=== PATIENT | male | born 1955 | race Caucasian/White ===

== ENCOUNTER 2018-10-18 09:32 | Emergency (ER) | payer SELFPAY ==
--- NOTE | 2018-10-18 10:07 | ER ---
Nurse's Notes [facility] Name: Andrae Norman Age: 63 yrs Sex: Male : 1955 Arrival Date: 10/18/2018 Time: 09:35 Bed 13 Private MD: Unknown, Unknown Diagnosis: Bitten by cat;Cellulitis of right upper limb Presentation: 10/18 09:52 Presenting complaint: Patient states: last Tuesday, my son's girlfriend's house cat, bit hj and scratch me on my R hand, unknown if cat's vaccination is up to date, yesterday i noticed my R hand is swollen and i dont feel right; reports F/C; denies N/V;. Transition of care: patient was not received from another setting of care. Onset of symptoms was October 18, 2018. Risk Assessment: Do you want to hurt yourself or someone else? Patient reports no desire to harm self or others. Initial Sepsis Screen: Does the patient meet any 2 criteria? No. Patient's initial sepsis screen is negative. Does the patient have a suspected source of infection? No. Patient's initial sepsis screen is negative. Care prior to arrival: None. 09:52 Method Of Arrival: Ambulatory 09:52 Acuity: COLLIN 3 hj Triage Assessment: 09:56 Bite description: bite sustained to right hand is from animal, was sustained 3 dasys by hj a cat, animal information: Appearance: was unknown if well or sick, is from animal, vaccination(s) is unknown, was sustained Animal status: Animal control has not been notified, happened in [place], [place] under [facility]. General: Appears in no apparent distress. uncomfortable, Behavior is calm, cooperative, appropriate for age. Pain: Complains of pain in right hand. Historical: - Allergies: 09:55 No Known Allergies; hj - Home Meds: 09:55 None [Active]; hj - PMHx: 09:55 None; - PSHx: 09:55 None; hj - Immunization history:: Adult Immunizations up to date. - Social history:: Smoking status: Patient uses tobacco products, Patient/guardian denies using alcohol. - Ebola Screening: : Patient negative for fever greater than or equal to 101.5 degrees Fahrenheit, and additional compatible Ebola Virus Disease symptoms Patient denies exposure to infectious person Patient denies travel to an Ebola-affected area in the 21 days before illness onset. Screenin:56 Abuse screen: Denies threats or abuse. Denies injuries from another. Nutritional hj screening: No deficits noted. Tuberculosis screening: No symptoms or risk factors identified. Fall Risk None identified. Assessment: 09:57 Derm: Skin Skin is. hj Vital Signs: 09:58 BP 123 / 59; Pulse 70; Resp 18; Temp 97.1(O); Pulse Ox 99% on R/A; Weight 83.91 kg; hj Height 5 ft. 10 in. (177.80 cm); Pain 8/10; 09:58 Body Mass Index 26.54 (83.91 kg, 177.80 cm) hj ED Course: 09:35 Patient arrived in ED. ag5 09:35 Unknown, Unknown is Private Physician. ag5 09:51 Iker Yen, RN is Primary Nurse. hj 09:54 Triage completed. hj 09:56 [facility] jr8 09:56 Nico Zimmer MD is Attending Physician. jr8 09:57 Arm band placed on left wrist. hj 09:58 Patient has correct armband on for positive identification. Placed in gown. Bed in low hj position. Call light in reach. Side rails up X 1. 10:04 Adair Cotto MD is Referral Physician. jr8 10:15 No provider procedures requiring assistance completed. Patient did not have IV access hj during this emergency room visit. Administered Medications: No medications were administered Outcome: 10:05 Discharge ordered by . jr8 10:15 Discharged to home ambulatory. hj 10:15 Condition: stable 10:15 Discharge instructions given to patient, Instructed on discharge instructions, follow up and referral plans. medication usage, Demonstrated understanding of instructions, follow-up care, medications, Prescriptions given X 1. 10:16 Patient left the ED. Signatures: Jose Andino PA PA Iker Petersen, RN RN Karolina Motley ag5
--- NOTE | 2018-10-18 10:08 | EDPHYS ---
Physician Documentation [facility] Name: Andrae Norman Age: 63 yrs Sex: Male : 1955 Arrival Date: 10/18/2018 Time: 09:35 Bed 13 Private MD: Unknown, Unknown ED Physician Nico Zimmer HPI: 10/18 10:01 This 63 yrs old Male presents to ER via Ambulatory with complaints of Cat jr8 Bite. 10:01 The patient was bitten on the right hand, by a cat, as a result of being attacked by jr8 the animal. Onset: The symptoms/episode began/occurred acutely, 3 day(s) ago. Animal information: The animal was reported to appear healthy. is unknown, The animal is known and can be quarantined. Secondary to the bite the patient reports erythema, pain, swelling, warmth. Associated signs and symptoms: The patient has no apparent associated signs or symptoms. Severity of symptoms: At their worst the symptoms were moderate, in the emergency department the symptoms are unchanged. The patient has not experienced similar symptoms in the past. The patient has not recently seen a physician. was bitten by girlfriends sons cat. Historical: - Allergies: 09:55 No Known Allergies; hj - Home Meds: 09:55 None [Active]; hj - PMHx: 09:55 None; hj - PSHx: 09:55 None; hj - Immunization history:: Adult Immunizations up to date. - Social history:: Smoking status: Patient uses tobacco products, Patient/guardian denies using alcohol. - Ebola Screening: : Patient negative for fever greater than or equal to 101.5 degrees Fahrenheit, and additional compatible Ebola Virus Disease symptoms Patient denies exposure to infectious person Patient denies travel to an Ebola-affected area in the 21 days before illness onset. ROS: 10:01 Eyes: Negative for injury, pain, redness, and discharge, ENT: Negative for injury, jr8 pain, and discharge, Neck: Negative for injury, pain, and swelling, Cardiovascular: Negative for chest pain, palpitations, and edema, Respiratory: Negative for shortness of breath, cough, wheezing, and pleuritic chest pain, Abdomen/GI: Negative for abdominal pain, nausea, vomiting, diarrhea, and constipation, Back: Negative for injury and pain, Skin: Negative for injury, rash, and discoloration, Neuro: Negative for headache, weakness, numbness, tingling, and seizure. 10:01 MS/extremity: Positive for erythema, pain, puncture, swelling, tenderness, warmth, of the dorsum right hand. Exam: 10:01 Eyes: Pupils equal round and reactive to light, extra-ocular motions intact. Lids and jr8 lashes normal. Conjunctiva and sclera are non-icteric and not injected. Cornea within normal limits. Periorbital areas with no swelling, redness, or edema. ENT: Nares patent. No nasal discharge, no septal abnormalities noted. Tympanic membranes are normal and external auditory canals are clear. Oropharynx with no redness, swelling, or masses, exudates, or evidence of obstruction, uvula midline. Mucous membranes moist. Neck: Trachea midline, no thyromegaly or masses palpated, and no cervical lymphadenopathy. Supple, full range of motion without nuchal rigidity, or vertebral point tenderness. No Meningismus. Cardiovascular: Regular rate and rhythm with a normal S1 and S2. No gallops, murmurs, or rubs. Normal PMI, no JVD. No pulse deficits. Respiratory: Lungs have equal breath sounds bilaterally, clear to auscultation and percussion. No rales, rhonchi or wheezes noted. No increased work of breathing, no retractions or nasal flaring. Abdomen/GI: Soft, non-tender, with normal bowel sounds. No distension or tympany. No guarding or rebound. No evidence of tenderness throughout. Back: No spinal tenderness. No costovertebral tenderness. Full range of motion. Skin: Warm, dry with normal turgor. Normal color with no rashes, no lesions, and no evidence of cellulitis. Neuro: Awake and alert, GCS 15, oriented to person, place, time, and situation. Cranial nerves II-XII grossly intact. Motor strength 5/5 in all extremities. Sensory grossly intact. Cerebellar exam normal. Normal gait. 10:01 Musculoskeletal/extremity: Extremities: grossly normal except: noted in the dorsum right hand: erythema, pain, swelling, tenderness, puncture site noted to right dorsal hand near CMC region, ROM: intact in all extremities, full active range of motion, full passive range of motion, Circulation is intact in all extremities. Sensation intact. Vital Signs: 09:58 BP 123 / 59; Pulse 70; Resp 18; Temp 97.1(O); Pulse Ox 99% on R/A; Weight 83.91 kg; hj Height 5 ft. 10 in. (177.80 cm); Pain 8/10; 09:58 Body Mass Index 26.54 (83.91 kg, 177.80 cm) MDM: 09:56 Patient medically screened. jr8 10:04 Data reviewed: vital signs, nurses notes, and as a result, I will discharge patient. jr8 Data interpreted: Pulse oximetry: on room air is 99 %. Interpretation: normal. Counseling: I had a detailed discussion with the patient and/or guardian regarding: the historical points, exam findings, and any diagnostic results supporting the discharge/admit diagnosis, the need for outpatient follow up, a family practitioner, to return to the emergency department if symptoms worsen or persist or if there are any questions or concerns that arise at home. Administered Medications: No medications were administered Disposition: 15:48 Co-signature as Attending Physician, Nico Zimmer MD. rn Disposition: 10/18/18 10:05 Discharged to Home. Impression: Bitten by cat, Cellulitis of right upper limb. - Condition is Stable. - Discharge Instructions: Cellulitis, Adult. - Prescriptions for Augmentin 875- 125 mg Oral Tablet - take 1 tablet by ORAL route every 12 hours for 10 days; 20 tablet. - Medication Reconciliation Form, Thank You Letter, Antibiotic Education, Prescription Opioid Use form. - Follow up: Adair Cotto MD; When: 2 - 3 days; Reason: Wound Recheck, Recheck today's complaints, Continuance of care, Re-evaluation by your physician. - Problem is new. - Symptoms have improved. Signatures: Nico Zimmer MD MD rn Jose Andino PA PA jr8 Iker Yen RN RN Corrections: (The following items were deleted from the chart) 10:16 10:05 10/18/2018 10:05 Discharged to Home. Impression: Bitten by cat; Cellulitis of hj right upper limb. Condition is Stable. Forms are Medication Reconciliation Form, Thank You Letter, Antibiotic Education, Prescription Opioid Use. Follow up: Adair Cotto; When: 2 - 3 days; Reason: Wound Recheck, Recheck today's complaints, Continuance of care, Re-evaluation by your physician. Problem is new. Symptoms have improved. jr8
== END 2018-10-18 10:16 | disposition home or self-care (01) ==
LOC: ER 09:32
DX: L03.113 Cellulitis of right upper limb (principal); S60.571A Other superficial bite of hand of right hand, initial encounter; W55.01XA Bitten by cat, initial encounter; Y93.9 Activity, unspecified; Y92.9 Unspecified place or not applicable; Z72.0 Tobacco use
CPT/HCPCS: 99282